=== PATIENT | female | born 1940 | race Caucasian/White ===

== ENCOUNTER 2017-03-30 00:18 | Emergency (ER) | payer MEDICARE ==
[2017-03-30 00:26] VITALS: BP_SYST 160
--- NOTE | 2017-03-30 00:30 | NUR ---
Patient to ER bed 3 to gown for evaluation. Side rails up. Report given to TALIA TALLEY.
--- NOTE | 2017-03-30 00:35 | NUR ---
Patient AAO x4, sitting in bed, c/o numbness to right face, arm and leg x 1 hr. Minor muscle weakness noted to right side, no significant neurological deficits noted at this time. No facial droop or asymetrical appearances. No acute distress noted. Will continue to monitor.
--- NOTE | 2017-03-30 00:40 | NUR ---
AUGIE Chávez at bedside examining patient.
[2017-03-30 01:22] LABS: BASOPHILS % (AUTO) 0.4 % (0.0-2.0); EOSINOPHILS # (AUTO) 0.1 K/uL (0.0-0.4); EOSINOPHILS % (AUTO) 1.1 % (0.0-4.0); HEMOGLOBIN 13.7 g/dL (12.0-16.0); LYMPHOCYTES # (AUTO) 1.6 K/uL (1.0-5.5); LYMPHOCYTES % (AUTO) 20.8 % (20.5-51.5); MEAN CORPUSCULAR HEMOGLOBIN 33 pg (27-31); MEAN CORPUSCULAR HGB CONC 35 % (32-36); MEAN CORPUSCULAR VOLUME 93 fL (79.0-98.0); MONOCYTES # (AUTO) 0.5 K/uL (0.0-1.0); MONOCYTES % (AUTO) 6.1 % (1.7-9.3); NEUTROPHILS # (AUTO) 5.4 K/uL (1.8-7.7); NEUTROPHILS % (AUTO) 71.6 % (40.0-70.0); PLATELET COUNT (AUTO) 279 K/uL (130-430); RED BLOOD CELL COUNT(AUTO) 4.19 MIL/uL (4.2-6.2); RED CELL DISTRIBUTION WIDTH 12.7 % (9.0-15.0); WHITE BLOOD COUNT (AUTO) 7.6 K/uL (4.8-10.8)
[2017-03-30 01:32] LABS: ANION GAP 7 (5-15); CHLORIDE 95 mmol/L (98-107); CREATININE 0.89 mg/dL (0.55-1.30); GLUCOSE 124 mg/dL (70-99); POTASSIUM 3.5 mmol/L (3.5-5.1); SODIUM SERUM 129 mmol/L (136-145); UREA NITROGEN, BLOOD 16 mg/dL (8-21)
[2017-03-30 01:37] LABS: ALANINE AMINOTRANSFERASE 40 U/L (12-78); ALBUMIN 3.4 g/dL (3.4-4.8); ASPARTATE AMINOTRANSFERASE 35 U/L (10-37); TOTAL BILIRUBIN 0.4 mg/dL (0.0-1.0)
[2017-03-30] MEDS ORDERED: NACL 0.9% 1,000 ML IV ONE (01:45)
[2017-03-30] MEDS ORDERED: hydrALAZINE HCL 20 MG/ML VIAL IVP ONE (02:00)
--- NOTE | 2017-03-30 02:00 | NUR ---
Patient ambulated to bathroom for urine collection.
--- NOTE | 2017-03-30 02:30 | NUR ---
# 22 gauge angiocath placed to L hand. Use of asceptic technique. Opsite placed over site. Blood return noted. Flushed with 10 cc of normal saline. No evidence of infiltration noted. Patient tolerated well.
[2017-03-30 02:35] LABS: BILIRUBIN,URINE NEGATIVE (NEGATIVE); BLOOD, URINE NEGATIVE (NEGATIVE); CLARITY/URINE CLEAR (CLEAR); COLOR,URINE YELLOW (YELLOW); GLUCOSE,URINE NEGATIVE (NEGATIVE); KETONES,URINE NEGATIVE (NEGATIVE); LEUKOCYTE ESTERASE ,URINE NEGATIVE (NEGATIVE); NITRITE, URINE NEGATIVE (NEGATIVE); PROTEIN URINE NEGATIVE (NEGATIVE); UROBILINOGEN,URINE 0.2 (0.2-1.0)
[2017-03-30 02:47] LABS: BARBITURATE, URINE NEGATIVE (NEG <=200); BENZODIAZEPINE, URINE NEGATIVE (NEG <=150); CANNABINOID, URINE NEGATIVE (NEG <=50); COCAINE, URINE NEGATIVE (NEG <=150); METHAMPHETAMINES SCREEN,URINE NEGATIVE (NEG <=500); OPIATE, URINE NEGATIVE (NEG <=100); PHENCYCLIDINE SCREEN,URINE NEGATIVE (NEG <=25); UR TRICYCLIC ANTIDEPRESSANTS NEGATIVE (NEG <=300); URINE AMPHETAMINE NEGATIVE (NEG <=500); URINE METHADONE NEGATIVE (NEG <=200); URINE OXYCODONE SCREEN NEGATIVE (NEG <=100); URINE PROPOXYPHENE SCREEN NEGATIVE (NEG <=300)
--- NOTE | 2017-03-30 03:02 | NUR ---
Patient resting quietly. No acute distress noted. Vital signs within normal range.
--- NOTE | 2017-03-30 04:54 | NUR ---
Patient ambulated to the bathroom. No acute distress noted. Will continue to monitor.
--- NOTE | 2017-03-30 05:50 | NUR ---
Patient resting quietly. No acute distress noted. Vital signs within normal range.
--- NOTE | 2017-03-30 06:56 | NUR ---
MADE FOLLOW UP CALL TO [facility]. SPOKE WITH RAUL. RAUL STATED THAT THE PATIENT WILL BE GOING TO [facility], VIA ALS AMBULANCE. ACCEPTING PHYSICIAN IS DR. LINARES. ETA IS BETWEEN 0800 AND 0815.
--- NOTE | 2017-03-30 07:10 | NUR ---
Report given to TALIA Azul. Care endorsed.
--- NOTE | 2017-03-30 07:33 | NUR ---
Pt is resting comfortably in bed with no noted distress or discomfort. Pt is aware of transfer to [facility] at 0800, consent to transfer was obtained by night nurse.
--- NOTE | 2017-03-30 07:47 | NUR ---
Spoke to Katelyn MELGAR at [facility] to endorse report, ALS transportation will be here @0800, Dr Ervin will be admitted the patient. Pt will be going to room 223
--- NOTE | 2017-03-30 08:30 | NUR ---
Pt is resting in bed comfortably with no noted distress or discomfort.
[2017-03-30 08:47] VITALS: BP_SYST 136
--- NOTE | 2017-03-30 08:47 | NUR ---
Patient to be transferred to [facility]. Is being transferred due to higher level of care. Receiving facility has accepting physician and available space. ER physician has signed transfer form. Patient or responsible democrat has agreed to transfer and signed form. Patient belongings inventoried and will be sent with patient. Copy of nursing notes, lab reports, EKG, Physicians Orders and X-rays to be sent with patient. Report called to Katelyn at receiving facility. Receiving physician is Dr Ervin. [facility] has been called for transfer. ETA is 0800.
== END 2017-03-30 08:47 | disposition short-term general hospital (02) ==
LOC: SED 00:18
DX: I21.4 Non-ST elevation (NSTEMI) myocardial infarction (principal); G45.9 Transient cerebral ischemic attack, unspecified; E87.1 Hypo-osmolality and hyponatremia; I10 Essential (primary) hypertension; E78.00 Pure hypercholesterolemia, unspecified
CPT/HCPCS: 36415; 70450; 71045; 80053; 80307; 81003; 84484; 85025; 93005; 96361; 96374; 99285; J0360; J7030

== ENCOUNTER 2017-06-03 19:20 | Emergency (ER) | payer MEDICARE ==
[~2017-06-03] VITALS: Ht 152.4 cm; Wt 59.0 kg
[2017-06-03 19:20] VITALS: BP_SYST 157
[2017-06-03 19:58] LABS: BASOPHILS % (AUTO) 0.3 % (0.0-2.0); EOSINOPHILS # (AUTO) 0.1 K/uL (0.0-0.4); EOSINOPHILS % (AUTO) 0.7 % (0.0-4.0); HEMATOCRIT 24.8 % (36-48); LYMPHOCYTES # (AUTO) 2.5 K/uL (1.0-5.5); LYMPHOCYTES % (AUTO) 30.2 % (20.5-51.5); MEAN CORPUSCULAR HEMOGLOBIN 32 pg (27-31); MEAN CORPUSCULAR HGB CONC 33 % (32-36); MEAN CORPUSCULAR VOLUME 96 fL (79.0-98.0); MONOCYTES # (AUTO) 0.7 K/uL (0.0-1.0); MONOCYTES % (AUTO) 7.8 % (1.7-9.3); NEUTROPHILS # (AUTO) 5.1 K/uL (1.8-7.7); PLATELET COUNT (AUTO) 245 K/uL (130-430); RED BLOOD CELL COUNT(AUTO) 2.59 MIL/uL (4.2-6.2); RED CELL DISTRIBUTION WIDTH 13.1 % (9.0-15.0); WHITE BLOOD COUNT (AUTO) 8.4 K/uL (4.8-10.8)
[2017-06-03 20:01] LABS: HEMOGLOBIN 8.2 g/dL (12.0-16.0)
[2017-06-03 20:05] LABS: ANION GAP 6 (5-15); CALCIUM 9.1 mg/dL (8.4-11.0); CHLORIDE 101 mmol/L (98-107); CREATININE 0.74 mg/dL (0.55-1.30); GLUCOSE 124 mg/dL (70-99); POTASSIUM 3.8 mmol/L (3.5-5.1); SODIUM SERUM 134 mmol/L (136-145); UREA NITROGEN, BLOOD 22 mg/dL (8-21)
[2017-06-03 20:07] LABS: PROTHROMBIN TIME 10.3 SECS (9.5-12.5)
[2017-06-03 20:09] LABS: ALANINE AMINOTRANSFERASE 23 U/L (12-78); ALBUMIN 3.4 g/dL (3.4-4.8); ASPARTATE AMINOTRANSFERASE 23 U/L (10-37); LIPASE 161 U/L (73-393); TOTAL BILIRUBIN 0.3 mg/dL (0.0-1.0)
[2017-06-03 20:10] LABS: BILIRUBIN,URINE NEGATIVE (NEGATIVE); BLOOD, URINE 2+ (NEGATIVE); CLARITY/URINE CLEAR (CLEAR); COLOR,URINE YELLOW (YELLOW); GLUCOSE,URINE NEGATIVE (NEGATIVE); KETONES,URINE TRACE (NEGATIVE); LEUKOCYTE ESTERASE ,URINE TRACE (NEGATIVE); NITRITE, URINE NEGATIVE (NEGATIVE); PROTEIN URINE NEGATIVE (NEGATIVE); UROBILINOGEN,URINE 0.2 (0.2-1.0)
[2017-06-03 20:14] LABS: BACTERIA,URINE FEW /HPF (None Seen); MUCUS,URINE None Seen /LPF (None Seen); RBC,URINE 0-3 /HPF (0-3)
[2017-06-03 21:45] VITALS: BP_SYST 165
[2017-06-04] MEDS ORDERED: OMEP20TA20 PO (20:31)
[2017-06-04] MEDS ORDERED: HYDR12.585 PO (20:31)
[2017-06-04] MEDS ORDERED: ASPI81TA2 PO (20:31)
[2017-06-04] MEDS ORDERED: LIP40 PO (20:31)
== END 2017-06-03 21:45 | disposition home or self-care (01) ==
LOC: SED 19:20
DX: G93.9 Disorder of brain, unspecified (principal); G45.9 Transient cerebral ischemic attack, unspecified; E78.00 Pure hypercholesterolemia, unspecified; I10 Essential (primary) hypertension; Z86.011 Personal history of benign neoplasm of the brain; Z85.72 Personal history of non-Hodgkin lymphomas
CPT/HCPCS: 36415; 70450-TC; 80053; 81000-TC; 83690-TC; 83880; 84484; 85025; 85610-TC; 85730-TC; 87086; 93005; 99285

== ENCOUNTER 2017-06-04 17:21 | Emergency (ER) | payer MEDICARE ==
[~2017-06-04] VITALS: Ht 157.5 cm; Wt 72.6 kg
[2017-06-04 17:30] VITALS: BP_SYST 151
[2017-06-04] MEDS ORDERED: NACL 0.9% 1,000 ML IV ONE (17:45)
[2017-06-04] MEDS ORDERED: LIP40 PO (20:31)
[2017-06-04] MEDS ORDERED: ASPI81TA2 PO (20:31)
[2017-06-04] MEDS ORDERED: OMEP20TA20 PO (20:31)
[2017-06-04] MEDS ORDERED: HYDR12.585 PO (20:31)
[2017-06-04 21:25] VITALS: BP_SYST 157
== END 2017-06-04 21:25 | disposition short-term general hospital (02) ==
LOC: SED 17:21
DX: G45.9 Transient cerebral ischemic attack, unspecified (principal); G93.9 Disorder of brain, unspecified
CPT/HCPCS: 93005; 96360; 96361; 99285; J7030